=== PATIENT | male | born 1940 | race Caucasian/White ===

== ENCOUNTER → 2017-08-19 | Outpatient (CLI) | payer MEDICARE, OTHER ==
[~2017-08-19] MED LIST: AMLO5 PO; ASPI81CH PO; ATOR40TA PO; CLOP75 PO; DIAZ2 PO; DOCU100 PO; FISH1000; FLUT1DIS5 INH; ISOD40ER PO; ISOMON20; LORA10ER; NEBI10 PO; TELM20 PO; WARF2 PO; [UNRECOGNIZED DRUG - CODE]; [UNRECOGNIZED DRUG - REMARK]
[2017-08-19 13:04] LABS: Stool Occult Bld Immuno 1 Negative (NEGATIVE)
== END | disposition home or self-care (01) ==
LOC: LAB SHORT 09:00 → LAB 09:00
DX: D64.9 Anemia, unspecified (principal)
CPT/HCPCS: G0328

== ENCOUNTER 2017-08-20 14:11 | Observation (INO) | payer MEDICARE, OTHER ==
[~2017-08-20] VITALS: Ht 182.9 cm; Wt 84.5 kg
[~2017-08-20 14:11] MED LIST changes: -DOCU100 PO; -ISOD40ER PO; -ISOMON20
[2017-08-20] MEDS ORDERED: ISOMON20 (14:43)
[2017-08-20 15:09] LABS: BASOPHILS ABSOLUTE AUTO 0.02 K/mm3 (0.00-0.23); BASOPHILS PERCENT AUTO 0 % (0-2); EOSINOPHILS ABSOLUTE AUTO 0.22 K/mm3 (0.00-0.68); EOSINOPHILS PERCENT AUTO 5 % (0-6); Hematocrit 24.5 % (37.0-53.0); Hemoglobin 7.1 g/dL (13.5-17.5); IMMATURE GRAN ABSOLUTE AUTO 0.01 K/mm3 (0.00-0.10); IMMATURE GRAN PERCENT AUTO 0 % (0-1); LYMPHOCYTES ABSOLUTE AUTO 1.46 K/mm3 (0.84-5.20); LYMPHOCYTES PERCENT AUTO 30 % (21-46); MONOCYTES ABSOLUTE AUTO 0.64 K/mm3 (0.16-1.47); MONOCYTES PERCENT AUTO 13 % (4-13); Mean Corpuscular HGB 22.1 pg (26.0-34.0); Mean Corpuscular Volume 76 fL (80-100); NEUTROPHILS ABSOLUTE AUTO 2.47 K/mm3 (1.96-9.15); NEUTROPHILS PERCENT AUTO 51 % (41-73); Platelet Count 233 K/mm3 (150-400); RDW Coefficient Variation 17.3 % (11.7-14.2); RDW Standard Deviation 48.1 fL (35.1-46.3); Red Blood Cell Count 3.21 M/mm3 (4.30-5.90); White Blood Cell Count 4.82 K/mm3 (4.00-11.30)
[2017-08-20 15:29] LABS: Alanine Aminotransfer (ALT/SGP 42 U/L (12-78); Albumin, Blood 3.3 g/dL (3.4-5.0); Albumin/Globulin Ratio 0.9 (0.8-1.8); Alk Phos 62 U/L (50-136); Anion Gap 7 mmol/L (6-16); Aspartate Aminotrans (AST/SGOT 40 U/L (12-37); Bilirubin, Total 0.2 mg/dL (0.1-1.0); Blood Urea Nitrogen 18 mg/dL (8-24); Bun/Creatinine Ratio 15.4 (12.0-20.0); CO2, Blood 26 mmol/L (21-32); Calcium, Blood 8.2 mg/dL (8.5-10.1); Chloride, Blood 109 mmol/L (98-108); Creatinine, Blood 1.17 mg/dL (0.60-1.20); Globulin, Blood 3.7 g/dL (2.2-4.0); Glomerular Filtration Rate >60 (60-); Glucose, Blood 91 mg/dL (70-99); Potassium, Blood 4.7 mmol/L (3.5-5.5); Sodium, Blood 142 mmol/L (136-145); Troponin I <0.015 ng/mL (0.000-0.040)
[2017-08-20 15:33] LABS: International Normalized Ratio 1.98
[2017-08-20] MEDS ORDERED: DOCU100 PO ×2 (20:39)
[2017-08-20] MEDS ORDERED: ISOD40ER PO ×2 (20:41)
[2017-08-21 05:11] LABS: Hematocrit 26.2 % (37.0-53.0); Hemoglobin 7.7 g/dL (13.5-17.5); Mean Corpuscular HGB 22.5 pg (26.0-34.0); Mean Corpuscular HGB Conc 29.4 g/dL (31.5-36.5); Mean Corpuscular Volume 77 fL (80-100); Mean Platelet Volume 9.5 fL (9.1-12.4); Platelet Count 227 K/mm3 (150-400); RDW Standard Deviation 49.8 fL (35.1-46.3); Red Blood Cell Count 3.42 M/mm3 (4.30-5.90); White Blood Cell Count 4.28 K/mm3 (4.00-11.30)
[2017-08-21 05:29] LABS: International Normalized Ratio 1.94; Prothrombin Time Results 20.6 Sec (9.7-11.5)
[2017-08-21 09:08] LABS: Hematocrit 30.8 % (37.0-53.0); Hemoglobin 9.5 g/dL (13.5-17.5); Mean Corpuscular HGB 23.6 pg (26.0-34.0); Mean Corpuscular HGB Conc 30.8 g/dL (31.5-36.5); Mean Corpuscular Volume 77 fL (80-100); Platelet Count 222 K/mm3 (150-400); RDW Coefficient Variation 17.5 % (11.7-14.2); RDW Standard Deviation 49.1 fL (35.1-46.3); Red Blood Cell Count 4.02 M/mm3 (4.30-5.90); White Blood Cell Count 4.99 K/mm3 (4.00-11.30)
== END 2017-08-21 11:35 | disposition home or self-care (01) ==
LOC: ER 14:11 → MEDS 14:12 → ENPENDDIS 08-21 11:06 → MEDS 08-21 11:35
PROVIDERS: Emergency Medicine; Internal Medicine
DX: D64.9 Anemia, unspecified (principal); I25.10 Atherosclerotic heart disease of native coronary artery without angina pectoris; I10 Essential (primary) hypertension; R06.00 Dyspnea, unspecified; K22.70 Barrett's esophagus without dysplasia; J92.0 Pleural plaque with presence of asbestos; J44.9 Chronic obstructive pulmonary disease, unspecified; I73.9 Peripheral vascular disease, unspecified; Z87.891 Personal history of nicotine dependence; Z95.5 Presence of coronary angioplasty implant and graft; Z88.5 Allergy status to narcotic agent; Z88.8 Allergy status to other drugs, medicaments and biological substances; Z79.01 Long term (current) use of anticoagulants; Z79.899 Other long term (current) drug therapy; Z86.73 Personal history of transient ischemic attack (TIA), and cerebral infarction without residual deficits
CPT/HCPCS: 36415; 36430; 71045; 80053; 83880; 84484; 85025; 85027; 85610; 85730; 86850; 86900; 86901; 86923; 93005; 93010; 93306; 99285; G0378; J7030; P9016

== ENCOUNTER → 2018-10-11 | Outpatient (CLI) | payer MEDICARE, OTHER ==
[~2018-10-11] MED LIST changes: +DOCU100 PO; +ISOD40ER PO; +ISOMON20
== END | disposition home or self-care (01) ==
LOC: LAB SHORT 18:05 → LAB 18:05
DX: D51.8 Other vitamin B12 deficiency anemias (principal)
CPT/HCPCS: 82607; 82746

== ENCOUNTER → 2018-11-16 | Outpatient (CLI) | payer MEDICARE, OTHER ==
[2018-11-16 15:46] LABS: BASOPHILS ABSOLUTE AUTO 0.02 K/mm3 (0.00-0.23); BASOPHILS PERCENT AUTO 0 % (0-2); EOSINOPHILS ABSOLUTE AUTO 0.21 K/mm3 (0.00-0.68); EOSINOPHILS PERCENT AUTO 4 % (0-6); Hematocrit 39.9 % (37.0-53.0); Hemoglobin 12.7 g/dL (13.5-17.5); IMMATURE GRAN ABSOLUTE AUTO 0.02 K/mm3 (0.00-0.10); IMMATURE GRAN PERCENT AUTO 0 % (0-1); LYMPHOCYTES ABSOLUTE AUTO 1.01 K/mm3 (0.84-5.20); LYMPHOCYTES PERCENT AUTO 17 % (21-46); MONOCYTES ABSOLUTE AUTO 0.54 K/mm3 (0.16-1.47); MONOCYTES PERCENT AUTO 9 % (4-13); Mean Corpuscular HGB 31.8 pg (26.0-34.0); Mean Corpuscular HGB Conc 31.8 g/dL (31.5-36.5); Mean Corpuscular Volume 100 fL (80-100); Mean Platelet Volume 9.3 fL (9.1-12.4); NEUTROPHILS ABSOLUTE AUTO 3.99 K/mm3 (1.96-9.15); NEUTROPHILS PERCENT AUTO 69 % (41-73); Platelet Count 141 K/mm3 (150-400); RDW Coefficient Variation 15.1 % (11.7-14.2); RDW Standard Deviation 56.8 fL (35.1-46.3); Red Blood Cell Count 3.99 M/mm3 (4.30-5.90); White Blood Cell Count 5.79 K/mm3 (4.00-11.30)
== END | disposition home or self-care (01) ==
LOC: LAB 15:30 → LAB SHORT 15:30
PROVIDERS: Internal Medicine Hematology & Oncology
DX: D50.9 Iron deficiency anemia, unspecified (principal)
CPT/HCPCS: 82728; 83540; 83550; 85025

== ENCOUNTER 2019-10-12 12:07 | Inpatient (IN) | payer MEDICARE, OTHER ==
[~2019-10-12] VITALS: Ht 182.9 cm; Wt 75.4 kg
[~2019-10-12 12:07] MED LIST changes: -ASPI81CH PO; +Aspir 8181 MG PO; -FLUT1DIS5 INH; -ISOD40ER PO
[2019-10-12 12:47] LABS: BASOPHILS ABSOLUTE AUTO 0.04 K/mm3 (0.00-0.23); BASOPHILS PERCENT AUTO 1 % (0-2); EOSINOPHILS ABSOLUTE AUTO 0.27 K/mm3 (0.00-0.68); EOSINOPHILS PERCENT AUTO 4 % (0-6); Hematocrit 22.4 % (37.0-53.0); Hemoglobin 6.9 g/dL (13.5-17.5); IMMATURE GRAN ABSOLUTE AUTO 0.02 K/mm3 (0.00-0.10); IMMATURE GRAN PERCENT AUTO 0 % (0-1); LYMPHOCYTES ABSOLUTE AUTO 1.63 K/mm3 (0.84-5.20); LYMPHOCYTES PERCENT AUTO 22 % (21-46); MONOCYTES ABSOLUTE AUTO 0.48 K/mm3 (0.16-1.47); MONOCYTES PERCENT AUTO 6 % (4-13); Mean Corpuscular HGB 32.4 pg (26.0-34.0); Mean Corpuscular HGB Conc 30.8 g/dL (31.5-36.5); Mean Corpuscular Volume 105 fL (80-100); Mean Platelet Volume 9.2 fL (9.1-12.4); NEUTROPHILS ABSOLUTE AUTO 5.13 K/mm3 (1.96-9.15); NEUTROPHILS PERCENT AUTO 68 % (41-73); NRBC ABSOLUTE 0.02 K/mm3 (0.00-0.02); NRBC Auto 0.3 /100 WBC (0.0-0.2); Platelet Count 187 K/mm3 (150-400); RDW Coefficient Variation 15.2 % (11.7-14.2); Red Blood Cell Count 2.13 M/mm3 (4.30-5.90); White Blood Cell Count 7.57 K/mm3 (4.00-11.30)
[2019-10-12 13:10] LABS: Prothrombin Time Results 57.2 Sec (9.7-11.5)
[2019-10-12 13:15] LABS: Alanine Aminotransfer (ALT/SGP 51 U/L (12-78); Albumin, Blood 2.8 g/dL (3.4-5.0); Albumin/Globulin Ratio 0.9 (0.8-1.8); Alk Phos 52 U/L (50-136); Anion Gap 5 mmol/L (6-16); Aspartate Aminotrans (AST/SGOT 51 U/L (12-37); Bilirubin, Total 0.3 mg/dL (0.1-1.0); Blood Urea Nitrogen 41 mg/dL (8-24); Bun/Creatinine Ratio 33.3 (12.0-20.0); CO2, Blood 23 mmol/L (21-32); Chloride, Blood 110 mmol/L (98-108); Creatinine, Blood 1.23 mg/dL (0.60-1.20); Glomerular Filtration Rate >60 (60-); Glucose, Blood 137 mg/dL (70-99); Potassium, Blood 4.4 mmol/L (3.5-5.5); Sodium, Blood 138 mmol/L (136-145); Total Protein, Blood 5.8 g/dL (6.4-8.2)
[2019-10-12 13:16] LABS: Troponin I <0.015 ng/mL (0.000-0.040)
[2019-10-12] MEDS ORDERED: ALBU90OI INH (13:33)
[2019-10-12 14:55] LABS: International Normalized Ratio 5.91
[2019-10-12] MEDS ORDERED: TRELEGY ELLIPT1 EACH INH (15:01)
[2019-10-12] MEDS ORDERED: ISOSORBIDE MONO60 MG PO (15:27)
[2019-10-12] MEDS ORDERED: PANTOPRAZOLE SO40 M2 PO (15:28)
[2019-10-12] MEDS ORDERED: NITR.4SL SL (15:29)
[2019-10-12 16:32] LABS: Percent Saturation 56.9 % (20.0-50.0)
--- NOTE | 2019-10-12 19:00 | NUR ---
ASSUMED CARE PT ALERT AND ORIENTED. VS STABLE. HR NSR. 1 UNIT OF PRBC INFUSING UPON ADMIT AND STARTED IN THE ER, SEE PAPER CHARTING. ATTEMPTED TO PLACE SECOND IV TO INITIATE PROTONIX GTT AND PT REFUSED. SECOND NURSE ATTEMPTED TO START ANOTHER IV VIA ULTRASOUND AND PT REFUSED WELL. PT EDUCATED ON NEED FOR SECOND IV AND PROTONIX GTT. PT NOT LETTING THIS RN FINISH SPEAKING AND STATING THAT HE KNOWS HIS BODY AND WHAT HE NEEDS. REPORT HAS BEEN GIVEN TO STACKER AND SORTER OPERATOR RN.
--- NOTE | 2019-10-12 20:00 | NUR ---
ASSUMED CARE THIS RN TO ROOM TO OBTAIN VITALS, AND ASSESS BLOOD TRANSFUSION. PER REPORT FORM DAY SHIFT PT HAS BEEN UPSET WITH CARE AND REFUSING ANOTHER IV, AND PROTONIX GTT. PT REPORTS "THE DOCTOR ORDERED SOMETHING AND DIDN'T TELL ME ABOUT IT. I DONT TRUST ANY DOCTOR THAT WOULD DO THAT". ATTEMPTED EDUCATION ON REASON FOR PROTONIX GTT. PT INTERUPTING EDUCATION AND REFUSING TO ALLOW THIS RN TO EDUCATE. OLEG INSTRUCTIONAL SYSTEMS DESIGNER BROUGHT TO ROOM TO HELP RN EDUCATE PT. PT REMAINS UNWILLING AND AGGITATED AT ATTEMPTS. REPORTS "JUST RESPECT MY DECISION AND I SAY NO AGAIN. NO MEDICATION NO IV". PT DID REPORT WILL ALLOW THIS RN TO PERFORM BLOOD DRAW AFTER SECOND UNIT OF PRBC'S HAS INFUSED. PT REQUESTING DRAW FROM IV ONLY. PT EDUCATED THAT DRAW FROM IV WAS NOT RECOMENDED PRACTICE. PT UNWILLING TO LISTEN TO EDUCATION.
--- NOTE | 2019-10-12 21:30 | NUR ---
UPDATE PATIENT'S BLOOD TRANSFUSION COMPLETE. PATIENT DISCONNECT AND REFUSED TO HAVE HIS PROTONIX GTT STARTED AND REFUSED TO HAVE ANY LAB WORK DONE. PATIENT STATING, "I DON'T WANT ANY MORE POKES." PATIENT STATED, "IF THEY DON'T WANT ME EATING AND PUTTING THINGS IN MY STOMACH THEN I DON'T NEED TO BE PUTTING MEDS IN IT EITHER." PATIENT REFUSING MOST MEDICATIONS AND LAB DRAWS EVEN AFTER EDUCATION ATTEMPTED. PATIENT NOT RECEPTIVE TO EDUCATION AT THIS TIME. PATIETN REQUESTING TO NOT BE BOTHERED UNTIL THE MORNING STATING, "I JUST WANT TO SLEEP."
--- NOTE | 2019-10-12 23:21 | NUR ---
PT REFUSING ALL VITAL SIGNS, MEDS AND BLOOD WORK AT THIS TIME.
--- NOTE | 2019-10-12 23:31 | NUR ---
RN TO ROOM TO FIX TELE LEADS. PT STILL REFUSING VITALS. APPEARS STABLE.
--- NOTE | 2019-10-13 04:00 | NUR ---
PT HAS REFUSED VITAL SIGNS FOR NIGHT AND ALL LAB WORK. HAS CALL LIGHT
--- NOTE | 2019-10-13 05:46 | NUR ---
SHIFT SUMMARY PT SLEEPING IN ROOM COMFORTABLY AT THIS TIME. NO ACUTE CHANGES IN STATUS T/O NIGHT PT REFUSED MOST CARE T/O SHIFT. PT RECEIVED 2 UNTIS, REFUSED BLOOD DRAW TO ASSESS HGB LEVEL. REFUSED VITALS T/O NIGHT. PT REPORTS "I FEEL FINE. JUST LEAVE ME ALONE UNTIL THE DOCTOR GETS HERE AND I CAN TALK TO HIM". PT REQUESTED DOOR SHUT AND NO ONE TO ENTER UNTIL AM. THIS RN AND RN CLINICAL QUALITY DID OPEN DOOR AND OBSERVE PT SLEEPING T/O NIGHT W/O WAKING PT. PT DID CONSENT TO REMAINING ON TELE T/O NIGHT. CALL LIGHT IN REACH.
[2019-10-13 08:46] LABS: Hematocrit 25.9 % (37.0-53.0); Hemoglobin 8.4 g/dL (13.5-17.5)
[2019-10-13 08:59] LABS: International Normalized Ratio 2.65; Prothrombin Time Results 26.8 Sec (9.7-11.5)
[2019-10-13 09:03] LABS: Anion Gap 5 mmol/L (6-16); Blood Urea Nitrogen 40 mg/dL (8-24); Bun/Creatinine Ratio 33.1 (12.0-20.0); CO2, Blood 25 mmol/L (21-32); Chloride, Blood 110 mmol/L (98-108); Creatinine, Blood 1.21 mg/dL (0.60-1.20); Glomerular Filtration Rate >60 (60-); Glucose, Blood 103 mg/dL (70-99); Potassium, Blood 4.5 mmol/L (3.5-5.5); Sodium, Blood 140 mmol/L (136-145)
--- NOTE | 2019-10-13 14:00 | NUR ---
10/13/19 1400 Diego Kearns History, Chart, Medications and Allergies reviewed before start of procedure.MONITOR INTACT WITH CONTINUOUS PULSE OXIMETRY AND INTERMITTENT BP.3-LEAD EKG REVIEWED WITH PHYSICIAN PRIOR TO START OF PROCEDURE.O2 VIA N/C INTACT THROUGHOUT SEDATION/PROCEDURE. PATIENT DETERMINED TO BE ASA APPROPRIATE FOR PROPOFOL SEDATION PRIOR TO START OF PROCEDURE BY DR. MELLO.
--- NOTE | 2019-10-13 14:19 | NUR ---
CARE ASSUMED ASSESSMENT COMPLETED, PT A&OX4, IRRITABLE AT TIMES BUT COOPERATIVE WITH CARE. VSS, PT DENIES CP/SOB, REPORTS SOME INTERMITTENT ABD DISCOMFORT, DENIES ABD PAIN AT THIS TIME. BT+, ABD SOFT, NO GRIMACING ON PALPATION, MILD DISTENSION NOTED, PT DENIES NAUSEA, REPORTS LAST BM WAS 2 DAYS AGO AND WAS BLACK, PT TAKES IRON SUPPLEMENT AT HOME. PT TOLERATED PO MEDS WELL WITH A SIP OF WATER, WAS GIVEN TYLENOL FOR ELIZALDE. DR.S MELLO AND KATIE IN TO SEE PATIENT, NEW ORDERS RECEIVED, COVID TEST SENT TO LAB. IV INFILTRATED, DC'D. POWERGLIDE INSERTED BY QIAN CHARLES TO R UPPER ARM, CHG DRESSING CDI. 2U FFP ADMINISTERED PER ORDERS, PT TOLERATED WELL, VS REMAIN STABLE. NS INFUSING AT 100ML/HR, PT NAPPED AFTER FFP, THEN WENT FOR EGD AT 1330. PLAN TO RECHECK LABS AFTER RETURN TO UNIT.
[2019-10-13 15:19] LABS: Hematocrit 21.2 % (37.0-53.0); Hemoglobin 6.6 g/dL (13.5-17.5)
--- NOTE | 2019-10-13 15:37 | NUR ---
UPDATE PT RETURNED TO PCU 3 FROM EGD AT 1445, ALERT AND ORIENTED, VSS, DENIES PAIN OR C/O. REPORT RECEIVED FROM PROCEDURE NURSE AND DR. MELLO. PT GIVEN CLEAR LIQUIDS PER DR. MELLO, TOLERATING WELL. SPECIMEN SENT TO LAB, HGB RESULT CALLED TO DR. MELLO.
[2019-10-13 17:10] LABS: Hematocrit 19.9 % (37.0-53.0); Hemoglobin 6.3 g/dL (13.5-17.5)
--- NOTE | 2019-10-13 17:38 | NUR ---
UPDATE DR. MELLO NOTIFIED OF HGB REDRAW RESULT, NEW ORDER FOR 1U PRBC, WILL ADMINISTER WHEN AVAILABLE.
--- NOTE | 2019-10-13 18:47 | NUR ---
END OF SHIFT PT RESTING IN BED WITH NO C/O AT THIS TIME. HAS BEEN UP TO BR INDEPENDENTLY MULTIPLE TIMES THIS SHIFT, GAIT STEADY. NO BOWEL MOVEMENT, NO EMESIS. PT REPORTS INCREASED SOB WITH EXERTION AND SOME LEFT SIDED CHEST PAIN, BOTH SYMPTOMS RESOLVE QUICKLY WITH REST, HX COPD. PT HAS BEEN NSR THIS SHIFT, HR 70'S, VSS DESPITE LOW HGB. PT HAS DENIED ABD DISCOMFORT THIS EVENING, NO N/V THIS SHIFT. PLEASANT AND COOPERATIVE AT THIS TIME, 1UNIT PRBC'S PENDING ADMINISTRATION. REPORT TO ONCOMING SHIFT.
[2019-10-13 19:02] LABS: International Normalized Ratio 1.76
[2019-10-13 19:10] LABS: Prothrombin Time Results 18.2 Sec (9.7-11.5)
[2019-10-13 23:08] LABS: Hematocrit 22.3 % (37.0-53.0); Hemoglobin 7.2 g/dL (13.5-17.5)
[2019-10-14 03:11] LABS: Hematocrit 23.6 % (37.0-53.0); Hemoglobin 7.4 g/dL (13.5-17.5); Mean Corpuscular HGB 30.7 pg (26.0-34.0); Mean Corpuscular HGB Conc 31.4 g/dL (31.5-36.5); Mean Platelet Volume 8.9 fL (9.1-12.4); NRBC ABSOLUTE 0.03 K/mm3 (0.00-0.02); NRBC Auto 0.6 /100 WBC (0.0-0.2); Platelet Count 112 K/mm3 (150-400); RDW Coefficient Variation 18.4 % (11.7-14.2); RDW Standard Deviation 62.9 fL (35.1-46.3); Red Blood Cell Count 2.41 M/mm3 (4.30-5.90); White Blood Cell Count 5.26 K/mm3 (4.00-11.30)
[2019-10-14 03:14] LABS: Mean Corpuscular Volume 98 fL (80-100)
[2019-10-14 03:26] LABS: International Normalized Ratio 1.63
[2019-10-14 03:29] LABS: Albumin, Blood 2.6 g/dL (3.4-5.0); Anion Gap 3 mmol/L (6-16); Blood Urea Nitrogen 26 mg/dL (8-24); Bun/Creatinine Ratio 23.4 (12.0-20.0); CO2, Blood 27 mmol/L (21-32); Calcium, Blood 7.6 mg/dL (8.5-10.1); Chloride, Blood 112 mmol/L (98-108); Creatinine, Blood 1.11 mg/dL (0.60-1.20); Glomerular Filtration Rate >60 (60-); Glucose, Blood 91 mg/dL (70-99); Phosphorus, Blood 3.2 mg/dL (2.5-4.9); Potassium, Blood 4.4 mmol/L (3.5-5.5); Sodium, Blood 142 mmol/L (136-145)
--- NOTE | 2019-10-14 05:12 | NUR ---
SHIFT SUMMARY PT SLEEPING IN ROOM COMFORTABLY AT THIS TIME. NO ACUTE CHANGES IN STATUS T/O NIGHT. PT SLEPT WELL. REPORTED SOME CP W/ EXERTION, RESOLVED W/ REST. 1 UNIT PRBC'S INFUSED FOR HGB 6.3. HGB IMPROVED TO 7.2 THEN 7.4. HOSPITALIST INFORMED NO NEW ORDERS. PT DENIED OTHER NEEDS. CALL LIGHT IN REACH.
--- NOTE | 2019-10-14 09:20 | NUR ---
UPDATE PT ALERT AND ORIENTED. VS STABLE. DR. MELLO IN TO SEE PT THIS AM WITH PLANS FOR GI BLOOD LOSS STUDY TODAY. IF SCAN IN CLEAR, PT ABLE TO DC HOME PER GI. ORDERS TO TRANSFUSE 1U PRBC. REPORT GIVEN TO MELVIN LAUGHLIN TO ASSUME CARE.
--- NOTE | 2019-10-14 09:56 | NUR ---
ASSUME CARE REPORT RECIEVED FROM MARYELLEN LAUGHLIN. PATIENT IS OUT OF UNIT AT [facility].
[2019-10-14 13:06] LABS: Stool Occult Bld Immuno 1 Positive (NEGATIVE)
[2019-10-14 14:56] LABS: Hemoglobin 8.6 g/dL (13.5-17.5)
--- NOTE | 2019-10-14 17:10 | NUR ---
PCU DISCHARGE SUMMARY PATIENT EDUCATED TO DISCHARGE INSTRUCTIONS - FOLLOW UP APPTS AND CLOSE MONITORING OF BLOOD PRESSURE, HR AND INR - PATIENT VERBALIZED UNDERSTANDING. PATIENT DENIED ANY COMPLAINTS OR QUESTIONS. LEFT UNIT HOME WITH IN NO ACUTE DISTRESS - BELONGINGS SENT WITH PATIENT.
== END 2019-10-14 16:50 | disposition home or self-care (01) | DRG 378 ==
LOC: ER 12:07 → PCU 15:56
PROVIDERS: Emergency Medicine; Internal Medicine Gastroenterology; ADMIT Internal Medicine
PROC: 30233N1 Transfusion of Nonautologous Red Blood Cells into Peripheral Vein, Percutaneous Approach (ICD-10-PCS; principal; 2019-10-12)
PROC: 30233K1 Transfusion of Nonautologous Frozen Plasma into Peripheral Vein, Percutaneous Approach (ICD-10-PCS; 2019-10-12)
PROC: 0D598ZZ Destruction of Duodenum, Via Natural or Artificial Opening Endoscopic (ICD-10-PCS; 2019-10-13 14:00)
DX: K55.21 Angiodysplasia of colon with hemorrhage (principal); D62 Acute posthemorrhagic anemia; I25.10 Atherosclerotic heart disease of native coronary artery without angina pectoris; I25.2 Old myocardial infarction; D50.9 Iron deficiency anemia, unspecified; I48.91 Unspecified atrial fibrillation; E78.5 Hyperlipidemia, unspecified; J44.9 Chronic obstructive pulmonary disease, unspecified; K22.70 Barrett's esophagus without dysplasia; Z85.46 Personal history of malignant neoplasm of prostate; I73.9 Peripheral vascular disease, unspecified; Z86.73 Personal history of transient ischemic attack (TIA), and cerebral infarction without residual deficits; Z90.79 Acquired absence of other genital organ(s); Z95.5 Presence of coronary angioplasty implant and graft; Z87.891 Personal history of nicotine dependence; E87.5 Hyperkalemia; M10.9 Gout, unspecified; B19.20 Unspecified viral hepatitis C without hepatic coma; I48.0 Paroxysmal atrial fibrillation; Z79.01 Long term (current) use of anticoagulants
CPT/HCPCS: 36415; 36430; 70450; 71045; 74177; 78278; 80048; 80053; 80069; 82274; 82728; 83540; 83550; 84484; 85014; 85018; 85025; 85027; 85610; 86850; 86900; 86901; 86923; 93005; 93010; 94760; 96374; 96375; 99285-25; A9270; A9270-GY; A9560; C1751; C9113; J2405; J2704; J7030; P9016; P9059; Q9967; U0002

== ENCOUNTER → 2019-10-18 | Outpatient (CLI) | payer MEDICARE, OTHER ==
[~2019-10-18] MED LIST changes: +ALBU90OI INH; +ISOSORBIDE MONO60 MG PO; +NITR.4SL SL; +PANTOPRAZOLE SO40 M2 PO; +TRELEGY ELLIPT1 EACH INH
[2019-10-18 19:55] LABS: BASOPHILS ABSOLUTE AUTO 0.02 K/mm3 (0.00-0.23); BASOPHILS PERCENT AUTO 0 % (0-2); EOSINOPHILS ABSOLUTE AUTO 0.25 K/mm3 (0.00-0.68); EOSINOPHILS PERCENT AUTO 5 % (0-6); Hematocrit 32.6 % (37.0-53.0); Hemoglobin 10.1 g/dL (13.5-17.5); IMMATURE GRAN ABSOLUTE AUTO 0.02 K/mm3 (0.00-0.10); IMMATURE GRAN PERCENT AUTO 0 % (0-1); LYMPHOCYTES ABSOLUTE AUTO 1.01 K/mm3 (0.84-5.20); LYMPHOCYTES PERCENT AUTO 18 % (21-46); MONOCYTES ABSOLUTE AUTO 0.44 K/mm3 (0.16-1.47); MONOCYTES PERCENT AUTO 8 % (4-13); Mean Corpuscular HGB 31.9 pg (26.0-34.0); Mean Platelet Volume 9.5 fL (9.1-12.4); NEUTROPHILS ABSOLUTE AUTO 3.85 K/mm3 (1.96-9.15); NEUTROPHILS PERCENT AUTO 69 % (41-73); Platelet Count 188 K/mm3 (150-400); RDW Coefficient Variation 18.5 % (11.7-14.2); RDW Standard Deviation 66.2 fL (35.1-46.3); Red Blood Cell Count 3.17 M/mm3 (4.30-5.90); White Blood Cell Count 5.59 K/mm3 (4.00-11.30)
[2019-10-18 19:59] LABS: Mean Corpuscular Volume 103 fL (80-100)
[2019-10-18 20:25] LABS: Percent Saturation 12.1 % (20.0-50.0)
== END ==
LOC: LAB SHORT 14:45 → LAB 14:45
PROVIDERS: Internal Medicine Hematology & Oncology
DX: D50.9 Iron deficiency anemia, unspecified (principal)
CPT/HCPCS: 82728; 83540; 83550; 85025

== ENCOUNTER → 2019-12-24 | Outpatient (CLI) | payer MEDICARE, OTHER | LOC: LAB SHORT 11:27 → PLD 11:27 → LAB SHORT 12-25 08:00 | DX: C44.519 Basal cell carcinoma of skin of other part of trunk (principal) | CPT/HCPCS: 88305 ==

== ENCOUNTER → 2020-03-12 | Outpatient (CLI) | payer MEDICARE, OTHER ==
[2020-03-12 19:37] LABS: Percent Saturation 51.7 % (20.0-50.0)
== END | disposition home or self-care (01) ==
LOC: LAB 17:29 → LAB SHORT 17:29
PROVIDERS: Internal Medicine Hematology & Oncology
DX: E61.1 Iron deficiency (principal)
CPT/HCPCS: 82728; 83540; 83550

== ENCOUNTER → 2020-06-16 | Outpatient (CLI) | payer MEDICARE, OTHER ==
[2020-06-16 18:20] LABS: Prothrombin Time Results 47.6 Sec (9.7-11.5)
[2020-06-16 19:28] LABS: International Normalized Ratio 4.87
== END | disposition home or self-care (01) ==
LOC: LAB SRC 15:12
PROVIDERS: Physician Assistant
DX: Z79.01 Long term (current) use of anticoagulants (principal); Z51.81 Encounter for therapeutic drug level monitoring
CPT/HCPCS: 36415; 85610

== ENCOUNTER → 2020-11-05 | Outpatient (CLI) | payer MEDICARE, OTHER | END | disposition home or self-care (01) | LOC: LAB 08:06 → LAB SHORT 08:06 | DX: C44.519 Basal cell carcinoma of skin of other part of trunk (principal); C44.41 Basal cell carcinoma of skin of scalp and neck | CPT/HCPCS: 88305 ==

== ENCOUNTER → 2021-10-09 | Outpatient (CLI) | payer MEDICARE, OTHER ==
[2021-10-09 14:38] LABS: Percent Saturation 48.4 % (20.0-50.0)
== END | disposition home or self-care (01) ==
LOC: LAB 13:02 → LAB SHORT 13:02
PROVIDERS: Internal Medicine Hematology & Oncology
DX: E53.8 Deficiency of other specified B group vitamins (principal); D50.0 Iron deficiency anemia secondary to blood loss (chronic)
CPT/HCPCS: 82607; 82728; 82746; 83540; 83550

== ENCOUNTER → 2022-02-02 | Outpatient (CLI) | payer MEDICARE, OTHER | END | disposition home or self-care (01) | LOC: LAB SHORT 08:59 → PLD 08:59 | DX: C44.41 Basal cell carcinoma of skin of scalp and neck (principal) | CPT/HCPCS: 88305 ==

== ENCOUNTER → 2022-02-17 | Outpatient (CLI) | payer MEDICARE, OTHER | LOC: PLD 09:03 → LAB SHORT 09:03 | DX: C44.41 Basal cell carcinoma of skin of scalp and neck (principal) | CPT/HCPCS: 88305 ==

== ENCOUNTER → 2022-03-09 | Outpatient (CLI) | payer MEDICARE, OTHER ==
[2022-03-09 20:07] LABS: Alanine Aminotransfer (ALT/SGP 93 U/L (12-78); Albumin, Blood 3.6 g/dL (3.4-5.0); Albumin/Globulin Ratio 1.3 (0.8-1.8); Alk Phos 64 U/L (50-136); Anion Gap 6 mmol/L (6-16); Aspartate Aminotrans (AST/SGOT 55 U/L (12-37); Bilirubin, Total 0.5 mg/dL (0.1-1.0); Blood Urea Nitrogen 20 mg/dL (8-24); Bun/Creatinine Ratio 15.2 (12.0-20.0); CO2, Blood 23 mmol/L (21-32); Calcium, Blood 8.8 mg/dL (8.5-10.1); Chloride, Blood 107 mmol/L (98-108); Creatinine, Blood 1.32 mg/dL (0.60-1.20); Ferritin, Serum 495 ng/mL (26-388); Globulin, Blood 2.8 g/dL (2.2-4.0); Glomerular Filtration Rate 55 (60-); Glucose, Blood 114 mg/dL (70-99); Iron Serum 114 ug/dL (65-175); Percent Saturation 48.1 % (20.0-50.0); Phosphorus, Blood 2.7 mg/dL (2.5-4.9); Potassium, Blood 3.9 mmol/L (3.5-5.5); Prostate Specific Antigen <0.010 ng/mL (0.000-4.000); Sodium, Blood 136 mmol/L (136-145); Total Iron Binding Capacity 237 ug/dL (250-450); Total Protein, Blood 6.4 g/dL (6.4-8.2)
== END | disposition home or self-care (01) ==
LOC: LAB 12:00 → LAB SHORT 12:00
PROVIDERS: Internal Medicine Hematology & Oncology
DX: Z12.5 Encounter for screening for malignant neoplasm of prostate (principal); D50.9 Iron deficiency anemia, unspecified
CPT/HCPCS: 80053; 82728; 83540; 83550; 84100; G0103

== ENCOUNTER → 2022-03-10 | Outpatient (CLI) | payer MEDICARE, OTHER ==
[2022-03-14 17:07] LABS: HBSAG SCREEN Negative (Negative); HCV AB >11.0 (0.0-0.9); HCV LOG10 5.744 (.); HEP A AB, IGM Negative (Negative); HEP B CORE AB, IGM Negative (Negative); HEPATITIS C QUANTITATION 554000 IU/mL (.)
== END | disposition home or self-care (01) ==
LOC: LAB 11:28 → LAB SHORT 11:28
PROVIDERS: Internal Medicine Hematology & Oncology
DX: B19.20 Unspecified viral hepatitis C without hepatic coma (principal); K76.9 Liver disease, unspecified; R79.89 Other specified abnormal findings of blood chemistry
CPT/HCPCS: 80074

== ENCOUNTER → 2022-07-13 | Outpatient (CLI) | payer MEDICARE, OTHER ==
[2022-07-13 22:38] LABS: Albumin, Blood 3.8 g/dL (3.4-5.0); Albumin/Globulin Ratio 1.2 (0.8-1.8); Bilirubin, Total 0.6 mg/dL (0.1-1.0); Bun/Creatinine Ratio 13.6 (12.0-20.0); Creatinine, Blood 1.32 mg/dL (0.60-1.20); Globulin, Blood 3.1 g/dL (2.2-4.0); Phosphorus, Blood 2.9 mg/dL (2.5-4.9); Potassium, Blood 3.9 mmol/L (3.5-5.5); Thyroid Stimulating Hormone 3.28 uIU/mL (0.360-4.800); Thyroxine (T4) 13.4 ug/dL (4.5-12.1); Total Protein, Blood 6.9 g/dL (6.4-8.2)
== END | disposition home or self-care (01) ==
LOC: LAB 15:23 → LAB SHORT 15:23
PROVIDERS: Internal Medicine Hematology & Oncology
DX: D50.9 Iron deficiency anemia, unspecified (principal); E78.5 Hyperlipidemia, unspecified
CPT/HCPCS: 80053; 84100; 84436; 84443

== ENCOUNTER → 2022-09-23 | Outpatient (CLI) | payer MEDICARE, OTHER ==
[2022-09-23 18:34] LABS: Thyroid Stimulating Hormone 2.53 uIU/mL (0.360-4.800); Thyroxine (T4) 10.8 ug/dL (4.5-12.1)
== END | disposition home or self-care (01) ==
LOC: LAB SHORT 11:56 → LAB 11:56
PROVIDERS: Internal Medicine Hematology & Oncology
DX: E03.9 Hypothyroidism, unspecified (principal)
CPT/HCPCS: 84436; 84443

== ENCOUNTER → 2023-02-15 | Outpatient (CLI) | payer MEDICARE, OTHER | LOC: LAB SHORT 14:56 → LAB 14:56 | DX: D48.5 Neoplasm of uncertain behavior of skin (principal) | CPT/HCPCS: 88305 ==

== ENCOUNTER → 2023-11-15 | Outpatient (CLI) | payer MEDICARE, OTHER ==
[~2023-11-15] MED LIST changes: +ALLOPURINOL100 M1 PO; +ATOR20 PO; -ATOR40TA PO; +JANTOVEN2 MG PO
[2023-11-16 18:29] LABS: Albumin, Blood 3.3 g/dL (3.4-5.0); Albumin/Globulin Ratio 1.1 (0.8-1.8); Bilirubin, Direct 0.2 mg/dL (0.0-0.3); Bilirubin, Indirect 0.2 mg/dL (0.1-0.7); Bilirubin, Total 0.4 mg/dL (0.1-1.0); Bun/Creatinine Ratio 18.1 (12.0-20.0); Calcium, Blood 8.9 mg/dL (8.5-10.1); Creatinine, Blood 1.27 mg/dL (0.60-1.20); Potassium, Blood 4.5 mmol/L (3.5-5.5); Total Protein, Blood 6.3 g/dL (6.4-8.2)
== END ==
LOC: LAB 15:00 → LAB SHORT 15:00
PROVIDERS: Internal Medicine Hematology & Oncology
DX: R94.5 Abnormal results of liver function studies (principal)
CPT/HCPCS: 80053; 82248

== ENCOUNTER 2024-06-01 17:22 | Emergency (ER) | payer MEDICARE, OTHER ==
[~2024-06-01] VITALS: Ht 182.9 cm; Wt 79.4 kg
[2024-06-01 17:31] VITALS: BP 166/93
[2024-06-01 18:06] LABS: CORONAVIRUS COVID-19 AG Negative (NEGATIVE); INFLUENZA A AG Positive (NEGATIVE); INFLUENZA B AG Negative (NEGATIVE)
[2024-06-01 19:21] LABS: BASOPHILS ABSOLUTE AUTO 0.03 K/mm3 (0.00-0.23); BASOPHILS PERCENT AUTO 1 % (0-2); EOSINOPHILS ABSOLUTE AUTO 0.01 K/mm3 (0.00-0.68); EOSINOPHILS PERCENT AUTO 0 % (0-6); Hematocrit 41.1 % (37.0-53.0); Hemoglobin 14.1 g/dL (13.5-17.5); IMMATURE GRAN ABSOLUTE AUTO 0.04 K/mm3 (0.00-0.10); IMMATURE GRAN PERCENT AUTO 1 % (0-1); LYMPHOCYTES ABSOLUTE AUTO 0.42 K/mm3 (0.84-5.20); LYMPHOCYTES PERCENT AUTO 7 % (21-46); MONOCYTES ABSOLUTE AUTO 0.58 K/mm3 (0.16-1.47); MONOCYTES PERCENT AUTO 9 % (4-13); Mean Corpuscular HGB 31.9 pg (26.0-34.0); Mean Corpuscular HGB Conc 34.3 g/dL (31.5-36.5); Mean Corpuscular Volume 93 fL (80-100); Mean Platelet Volume 9.2 fL (9.1-12.4); NEUTROPHILS ABSOLUTE AUTO 5.16 K/mm3 (1.96-9.15); NEUTROPHILS PERCENT AUTO 83 % (41-73); Platelet Count 107 K/mm3 (150-400); RDW Coefficient Variation 13.9 % (11.7-14.2); RDW Standard Deviation 47.5 fL (35.1-46.3); Red Blood Cell Count 4.42 M/mm3 (4.30-5.90); White Blood Cell Count 6.24 K/mm3 (4.00-11.30)
[2024-06-01 19:39] LABS: Albumin, Blood 3.4 g/dL (3.4-5.0); Albumin/Globulin Ratio 0.9 (0.8-1.8); Bilirubin, Total 0.7 mg/dL (0.1-1.0); Bun/Creatinine Ratio 17.3 (12.0-20.0); Calcium, Blood 8.5 mg/dL (8.5-10.1); Creatinine, Blood 1.27 mg/dL (0.60-1.20); Globulin, Blood 3.8 g/dL (2.2-4.0); Potassium, Blood 4.2 mmol/L (3.5-5.5); Total Protein, Blood 7.2 g/dL (6.4-8.2)
[2024-06-01] MEDS ORDERED: Ondansetron HCl 2 MG / ML 2ML Vial IV ONE (20:15)
[2024-06-01] MEDS ORDERED: NS 1,000 ML IV SCH (20:25)
[2024-06-01] MEDS ORDERED: ONDA4ODT MM (21:03)
[2024-06-01] MEDS ORDERED: OSEL75CA PO (21:03)
== END 2024-06-01 21:29 | disposition home or self-care (01) ==
LOC: ER 17:22
PROVIDERS: Student in an Organized Health Care Education/Training Program
DX: J10.1 Influenza due to other identified influenza virus with other respiratory manifestations (principal); E86.0 Dehydration; I10 Essential (primary) hypertension; I25.2 Old myocardial infarction; J44.9 Chronic obstructive pulmonary disease, unspecified; Z87.891 Personal history of nicotine dependence; Z86.73 Personal history of transient ischemic attack (TIA), and cerebral infarction without residual deficits; Z79.01 Long term (current) use of anticoagulants; Z79.82 Long term (current) use of aspirin; Z79.51 Long term (current) use of inhaled steroids; Z79.899 Other long term (current) drug therapy
CPT/HCPCS: 71046; 80053; 85025; 87428-QW; 93005; 93010; 96361; 96374; 99284-25; J2405; J7030

== ENCOUNTER 2024-11-07 10:53 | Emergency (ER) | payer MEDICARE, OTHER ==
[~2024-11-07] VITALS: Ht 177.8 cm; Wt 72.6 kg
[~2024-11-07 10:53] MED LIST changes: +ONDA4ODT MM; +OSEL75CA PO
[2024-11-07] MEDS ORDERED: NEURONTIN300 MG PO (12:16)
[2024-11-07] MEDS ORDERED: TRELEGY ELLIPT1 EAC1 (12:17)
[2024-11-07] MEDS ORDERED: NITROGLYCERIN0.4 M3 SL (12:18)
[2024-11-07 12:19] LABS: BASOPHILS ABSOLUTE AUTO 0.03 K/mm3 (0.00-0.23); BASOPHILS PERCENT AUTO 0 % (0-2); EOSINOPHILS ABSOLUTE AUTO 0.03 K/mm3 (0.00-0.68); EOSINOPHILS PERCENT AUTO 0 % (0-6); Hematocrit 41.6 % (37.0-53.0); Hemoglobin 13.6 g/dL (13.5-17.5); IMMATURE GRAN ABSOLUTE AUTO 0.10 K/mm3 (0.00-0.10); IMMATURE GRAN PERCENT AUTO 1 % (0-1); LYMPHOCYTES ABSOLUTE AUTO 1.04 K/mm3 (0.84-5.20); LYMPHOCYTES PERCENT AUTO 8 % (21-46); MONOCYTES ABSOLUTE AUTO 1.23 K/mm3 (0.16-1.47); MONOCYTES PERCENT AUTO 9 % (4-13); Mean Corpuscular HGB Conc 32.7 g/dL (31.5-36.5); Mean Corpuscular Volume 95 fL (80-100); NEUTROPHILS ABSOLUTE AUTO 11.00 K/mm3 (1.96-9.15); NEUTROPHILS PERCENT AUTO 82 % (41-73); NRBC ABSOLUTE 0.00 K/mm3 (0.00-0.02); NRBC Auto 0.0 /100 WBC (0.0-0.2); Platelet Count 127 K/mm3 (150-400); RDW Coefficient Variation 14.2 % (11.7-14.2); RDW Standard Deviation 49.6 fL (35.1-46.3)
[2024-11-07 12:33] LABS: Prothrombin Time Results 16.8 Sec (9.7-11.5)
[2024-11-07 12:55] LABS: Anion Gap 6.0 mmol/L (3-11); Blood Urea Nitrogen 24.0 mg/dL (8-24); CO2, Blood 29.0 mmol/L (21-32); Calcium, Blood 8.4 mg/dL (8.5-10.1); Chloride, Blood 101.0 mmol/L (98-108); Creatinine, Blood 1.3 mg/dL (0.60-1.20); Glucose, Blood 115.0 mg/dL (70-99); Potassium, Blood 4.2 mmol/L (3.5-5.5); Sodium, Blood 132.0 mmol/L (136-145)
[2024-11-07 16:00] VITALS: BP 132/84
== END 2024-11-07 16:47 | disposition home or self-care (01) ==
LOC: ER 10:53
PROVIDERS: Student in an Organized Health Care Education/Training Program
DX: R07.9 Chest pain, unspecified (principal); I48.91 Unspecified atrial fibrillation; R06.02 Shortness of breath; I69.954 Hemiplegia and hemiparesis following unspecified cerebrovascular disease affecting left non-dominant side; I10 Essential (primary) hypertension; I25.2 Old myocardial infarction; I25.10 Atherosclerotic heart disease of native coronary artery without angina pectoris; J44.9 Chronic obstructive pulmonary disease, unspecified; Z79.82 Long term (current) use of aspirin; Z79.899 Other long term (current) drug therapy; Z79.01 Long term (current) use of anticoagulants; Z87.891 Personal history of nicotine dependence
CPT/HCPCS: 71046; 71260; 80048; 84484; 85025; 85379; 85610; 85651; 86140; 93005; 93010; 99285-25; Q9967

== ENCOUNTER 2024-12-24 20:55 | Inpatient (IN) | payer MEDICARE, OTHER ==
[~2024-12-24] VITALS: Ht 182.9 cm; Wt 78.7 kg
[~2024-12-24 20:55] MED LIST changes: +NEURONTIN300 MG PO; +NITROGLYCERIN0.4 M3 SL; +TRELEGY ELLIPT1 EAC1 INH
[2024-12-24] MEDS ORDERED: Ondansetron HCl 2 MG / ML 2ML Vial IV ONE (21:05)
[2024-12-24 21:27] LABS: BASOPHILS ABSOLUTE AUTO 0.04 K/mm3 (0.00-0.23); BASOPHILS PERCENT AUTO 1 % (0-2); EOSINOPHILS ABSOLUTE AUTO 0.34 K/mm3 (0.00-0.68); EOSINOPHILS PERCENT AUTO 6 % (0-6); Hematocrit 41.8 % (37.0-53.0); Hemoglobin 13.5 g/dL (13.5-17.5); IMMATURE GRAN ABSOLUTE AUTO 0.05 K/mm3 (0.00-0.10); IMMATURE GRAN PERCENT AUTO 1 % (0-1); LYMPHOCYTES ABSOLUTE AUTO 1.50 K/mm3 (0.84-5.20); LYMPHOCYTES PERCENT AUTO 24 % (21-46); MONOCYTES ABSOLUTE AUTO 0.63 K/mm3 (0.16-1.47); MONOCYTES PERCENT AUTO 10 % (4-13); Mean Corpuscular HGB Conc 32.3 g/dL (31.5-36.5); Mean Corpuscular Volume 94 fL (80-100); NEUTROPHILS ABSOLUTE AUTO 3.66 K/mm3 (1.96-9.15); NEUTROPHILS PERCENT AUTO 59 % (41-73); NRBC ABSOLUTE 0.00 K/mm3 (0.00-0.02); NRBC Auto 0.0 /100 WBC (0.0-0.2); Platelet Count 131 K/mm3 (150-400); RDW Coefficient Variation 14.8 % (11.7-14.2); RDW Standard Deviation 51.8 fL (35.1-46.3)
[2024-12-24 21:44] LABS: Alanine Aminotransfer (ALT/SGP 68.0 U/L (12-78); Albumin, Blood 3.4 g/dL (3.4-5.0); Albumin/Globulin Ratio 0.8 (0.8-1.8); Anion Gap 9.0 mmol/L (3-11); Aspartate Aminotrans (AST/SGOT 61.0 U/L (12-37); Bilirubin, Total 0.4 mg/dL (0.1-1.0); Blood Urea Nitrogen 21.0 mg/dL (8-24); CO2, Blood 28.0 mmol/L (21-32); Calcium, Blood 8.9 mg/dL (8.5-10.1); Chloride, Blood 103.0 mmol/L (98-108); Creatinine, Blood 1.37 mg/dL (0.60-1.20); Globulin, Blood 4.0 g/dL (2.2-4.0); Glucose, Blood 98.0 mg/dL (70-99); Potassium, Blood 4.6 mmol/L (3.5-5.5); Sodium, Blood 135.0 mmol/L (136-145); Total Protein, Blood 7.4 g/dL (6.4-8.2)
[2024-12-24 22:54] LABS: Source, Urine Clean Catch
[2024-12-24 23:10] LABS: Bilirubin, Urine Neg (Neg); Color, Urine Yellow (P-Yellow); Glucose Qualitative, Urine Neg (Neg); Ketones, Urine Neg (Neg); Leukocyte Esterase, Urine Neg (Neg); Protein, Urine 2+ (Neg); Specific Gravity, Urine 1.020 (1.003-1.022); Urobilinogen, Urine 1+ (Normal)
[2024-12-24 23:12] LABS: Red Blood Cells, Urine Not Seen /hpf (0-2); White Blood Cells, Urine Not Seen /hpf (0-5)
[2024-12-25] MEDS ORDERED: Ondansetron HCl 2 MG / ML 2ML Vial IV PRN (00:20)
[2024-12-25] MEDS ORDERED: Albuterol 2.5 MG/3 ML VIAL INH PRN (00:20)
[2024-12-25] MEDS ORDERED: NS 1,000 ML IV SCH (01:00)
[2024-12-25 01:05] LABS: Prothrombin Time Results 26.7 Sec (9.7-11.5)
[2024-12-25 03:29] VITALS: BP 152/108
--- NOTE | 2024-12-25 04:56 | NUR ---
PT A&O X4, VS WNL, TELE AFIB, UP WITH ASSIST, ON IVF, AWAITING FOR MRI, AND GAME PRODUCER SWALLOW EVAL. ON IVF, IS NPO. USES CALL SYSTEM APPROPRIATELY. WILL D/C HOME WITH . ADMITTED FROM ED WITH SEIZURES, AND AMS.
[2024-12-25 06:34] LABS: BASOPHILS ABSOLUTE AUTO 0.04 K/mm3 (0.00-0.23); BASOPHILS PERCENT AUTO 1 % (0-2); EOSINOPHILS ABSOLUTE AUTO 0.10 K/mm3 (0.00-0.68); EOSINOPHILS PERCENT AUTO 1 % (0-6); Hematocrit 40.1 % (37.0-53.0); Hemoglobin 13.0 g/dL (13.5-17.5); IMMATURE GRAN ABSOLUTE AUTO 0.08 K/mm3 (0.00-0.10); IMMATURE GRAN PERCENT AUTO 1 % (0-1); LYMPHOCYTES ABSOLUTE AUTO 1.30 K/mm3 (0.84-5.20); LYMPHOCYTES PERCENT AUTO 16 % (21-46); MONOCYTES ABSOLUTE AUTO 0.58 K/mm3 (0.16-1.47); MONOCYTES PERCENT AUTO 7 % (4-13); Mean Corpuscular HGB Conc 32.4 g/dL (31.5-36.5); Mean Corpuscular Volume 96 fL (80-100); NEUTROPHILS ABSOLUTE AUTO 6.02 K/mm3 (1.96-9.15); NEUTROPHILS PERCENT AUTO 74 % (41-73); NRBC ABSOLUTE 0.00 K/mm3 (0.00-0.02); NRBC Auto 0.0 /100 WBC (0.0-0.2); Platelet Count 114 K/mm3 (150-400); RDW Coefficient Variation 14.9 % (11.7-14.2); RDW Standard Deviation 53.1 fL (35.1-46.3)
[2024-12-25 06:47] LABS: Prothrombin Time Results 26.6 Sec (9.7-11.5)
[2024-12-25 06:58] LABS: Alanine Aminotransfer (ALT/SGP 63.0 U/L (12-78); Albumin, Blood 3.2 g/dL (3.4-5.0); Albumin/Globulin Ratio 0.8 (0.8-1.8); Anion Gap 9.0 mmol/L (3-11); Aspartate Aminotrans (AST/SGOT 60.0 U/L (12-37); Bilirubin, Total 0.5 mg/dL (0.1-1.0); Blood Urea Nitrogen 23.0 mg/dL (8-24); CO2, Blood 23.0 mmol/L (21-32); Calcium, Blood 8.7 mg/dL (8.5-10.1); Chloride, Blood 103.0 mmol/L (98-108); Creatinine, Blood 1.28 mg/dL (0.60-1.20); Globulin, Blood 3.8 g/dL (2.2-4.0); Glucose, Blood 116.0 mg/dL (70-99); Potassium, Blood 4.0 mmol/L (3.5-5.5); Sodium, Blood 131.0 mmol/L (136-145); Total Protein, Blood 7.0 g/dL (6.4-8.2)
[2024-12-25 07:40] VITALS: BP 150/87
[2024-12-25] MEDS ORDERED: Enoxaparin 40 MG/0.4 ML SYR SC SCH (09:00)
[2024-12-25] MEDS ORDERED: Pantoprazole Sodium 40 MG Injection IV SCH (09:00)
[2024-12-25 11:09] VITALS: BP 141/92
[2024-12-25] MEDS ORDERED: Formoterol/Mometasone MDI 5/200 mcg 13 GM INH SCH (12:10)
[2024-12-25] MEDS ORDERED: Ipratropium Bromide INH 0.02% 0.5 mg/2.5ML Vial INH SCH ×2 (12:10→23:25)
[2024-12-25 16:17] VITALS: BP 127/78
--- NOTE | 2024-12-25 19:26 | NUR ---
ASSUMED CARE PT VERY PLEASENT A/O X 4 CALL LIGHT WITHIN REACH. PAIN TO MID BACK 01/09 AND WAS MEDICATED PER JUN. HEATING PAD APPLIED WELL. NEW IV INSERTED TO RIGHT FOREARM. FAMILY AT BEDSIDE.
--- NOTE | 2024-12-25 19:27 | NUR ---
PT IS CONSISTENT TO MID BACK, NOTE THAT PT HAD CHRONIC PAIN IN THE AREA BUT SINCE ILLNESS IT HAS GOTTEN WORSE, WILL CONT TO REPOSITION AND MONITOR. PT TAKEN FOR MRI AND JULIO WELL. STATES PAIN HAS IMPROVED A LITTLE, BUT IS STILL THERE.
--- NOTE | 2024-12-25 19:30 | NUR ---
NO CHANGE IN CONDITION PT HAS BEEN SLEEPING SPOT CHECKS ON O2 SHOWED PT IN THE MID TO LOW 90S ON RA, WILL CONT TO MONITOR. DAUGHTER REMAINS AT BEDSIDE TO ASSIST. FAMILY TO BRING IN POLST, STATES PT IS DNR.
[2024-12-25 20:09] VITALS: BP 121/82
[2024-12-25] MEDS ORDERED: Docusate Sodium/Senna 1 Tab PO SCH (21:00)
[2024-12-26 05:18] VITALS: BP 134/89
[2024-12-26 05:49] LABS: Prothrombin Time Results 27.8 Sec (9.7-11.5)
[2024-12-26 07:41] VITALS: BP 142/79
--- NOTE | 2024-12-26 07:57 | NUR ---
SHIFT SUMMARY PT HAS BEEN IN PLEASANT MOOD THIS SHIFT. HE AGREED TO SUPPLEMENTAL O2 VIA NC. IN AM, MOI FROM RT TURNED DOWN ALERT SETTINGS TO 86% PER PT REQUEST. PT SUPPLEMENTAL O2 DC D. PT REQUESTED PROTEIN SNACK. THIS RN PROVIDED LEAN CUISINE TO PT. PT CONTENT WITH THIS OPTION. PT PLEASANT AND COOPERATIVE WITH THIS RN. PT WANTING TO GO HOME. PT NEEDS CASE MANAGEMENT INVOLVEMENT AND IN THIS RN S PROFESSIONAL JUDGEMENT WOULD BENEFIT GREATLY FROM HOME HEALTH EVAL.
[2024-12-26] MEDS ORDERED: DONEPEZIL HCL10 M1 PO (11:20)
[2024-12-26 15:53] VITALS: BP 146/93
--- NOTE | 2024-12-26 18:43 | NUR ---
SHIFT SUMMARY PT A&OX3-4 TODAY. RECENT DX OF DEMENTIA WITH INTERMITTENT CONFUSION. PT EVAL PENDING TO ASSESS FOR THE NEED FOR CHANGES TO MOBILITY DEVICES ON DISCHARGE. PT IS CURRENTLY RESTING IN BED, WITH BED IN LOWEST POSITION AND CALL LIGHT IN REACH. PT CONTINUES TO HAVE PAIN, PAIN IS BEING TREATED PER EMAR. PER PT PATIENT IS HIGH FALL RISK. BED TO CHAIR/BED TO COMMODE ONLY.
[2024-12-26] MEDS ORDERED: VITAMIN D5000 UNIT PO (19:05)
[2024-12-26] MEDS ORDERED: OCUVITE BLUE L1 EACH PO (19:06)
[2024-12-26] MEDS ORDERED: C COMPLEX1000 M1 PO (19:06)
[2024-12-26] MEDS ORDERED: ZYRTEC10 M2 PO (19:07)
[2024-12-26] MEDS ORDERED: MAGNESIUM GLU27.5 M1 PO (19:07)
[2024-12-26] MEDS ORDERED: DOCU100 PO (19:09)
[2024-12-26 20:09] VITALS: BP 127/82
[2024-12-27 04:18] VITALS: BP 163/96
[2024-12-27 06:32] LABS: Prothrombin Time Results 28.5 Sec (9.7-11.5)
[2024-12-27 07:44] VITALS: BP 141/85
--- NOTE | 2024-12-27 13:23 | NUR ---
PT BACK FRO PACU PT IS DROWSY AWAKENS EASILY A/OX4, VS WNL, CLEAN DRY DRESSING ON THE RIGHT FOOT, CALL LIGHT IN REACH
[2024-12-27 15:33] VITALS: BP 123/74
--- NOTE | 2024-12-27 15:47 | NUR ---
CASE CONFRENCE- DISCUSSED CASE WITH PHYSICAL THERAPY AND PROVIDER. PROVIDER RELAYED PLAN IS FOR PATIENT TO GO TO SNF, HE HAS NO CONCERNS AT THIS TIME THAT WOULD WARRENT A HOSPICE CONVERSATION. VISIT ATTEMPTED TO PT
--- NOTE | 2024-12-27 19:24 | NUR ---
NO ACUTE CHANGES THIS SHIFT. CURRENLTY AWAITING SNF PLACEMENT. 1 PERSON ASSIST TO BATHROOM, FORGETS LIMITATIONS. NEEDS ADDITIONAL BOWEL CARE
[2024-12-27 20:27] VITALS: BP 128/82
[2024-12-28 05:22] VITALS: BP 151/98
--- NOTE | 2024-12-28 06:07 | NUR ---
INDUSTRIAL ENG SUMMARY NO ACUTE CHANGES. PT C/O OF 8-01/09 PAIN IN BACK. MED PER MAR. PT IMPULSIVE. PT IS PLEASANT WITH CARE/STAFF BUT CAN BE NON COMPLIANT WITH ASPECTS OF CARE LIKE NOT WANTING TO SIT UP AT 90 DEGREES FOR INTAKE AND PT IS RESISTANT TO HAVING LABS DRAWN. CALL LIGHT ACCESSIBLE. BED ALARM IN PLACE. REGULAR INTERVAL ROUNDING DONE T/O SHIFT. CARE WILL CONTINUE UNTIL REPORT GIVEN TO ONCOMING NURSE.
[2024-12-28 07:24] VITALS: BP 159/92
--- NOTE | 2024-12-28 10:30 | NUR ---
DECLINED LAB NOTE: PATIENT DECLINED LAB DRAWN MULTIPLE TIMES THIS AM. NOTIFIED DR. ACEVES DURING AM ROUNDING, PER DR. ACEVES TO CANCELLED LAB NOW AND HE NEEDS TO HAVE A REPEAT LAB DONE OUTPT.
[2024-12-28] MEDS ORDERED: ALLO100 PO (11:39)
[2024-12-28] MEDS ORDERED: SENN187 PO (11:41)
[2024-12-28] MEDS ORDERED: IPRAT-ALBUT 0.5-3 ML INH (11:43)
[2024-12-28] MEDS ORDERED: LEVETIRACETAM750 M1 PO (11:44)
--- NOTE | 2024-12-28 13:57 | NUR ---
REPORT TO [facility] NOTE: REPORTS GIVEN TO QIAN CONN VIA TELEPHONE AT [facility], REGARDING PATIENT CONDITION, PLAN OF CARE AND EXPECTED TIME FOR PICK-UP AT 1630. FABIEN VERBALIZED UNDERSTANDING AND NO FURTHER QUESTIONS.
[2024-12-28 16:01] VITALS: BP 109/72
--- NOTE | 2024-12-28 16:36 | NUR ---
SHIFT/DISCHARGE SUMMARY: PATIENT A/OX3, PLEASANT AND COOPERATIVE c CARE. PATIENT MEDICATED FOR LOWER BACK PAIN PER EMAR c GOOD EFFECT. PATIENT HAD LARGE, BROWN BM TODAY. PATIENT RECEIVED SCHEDULED MEDS PER EMAR. VITAL SIGNS REVIEWED. PATIENT TOLERATING PO INTAKE WITHOUT DIFFICULTIES. PATIENT DENIES CP/PRESSURE, SOB, N/V AND DIZZINESS. PIV DC'D. PATIENT HAS HAD NO NEW CONCERNED OR DENIES ANY COMPLAINTS THIS SHIFT. PATIENT DISCHARGE TO [facility] FOR STRENGTHENING. PATIENT DISCHARGE INSTRUCTION PACKET GIVEN TO LISETH MENARD. PATIENT TRANSPORTED VIA WC AND LEFT AT 1635. ALL PERSONAL BELONGINGS WERE SENT c PATIENT. TR COMPLETED.
== END 2024-12-28 17:18 | DRG 101 ==
LOC: ER 20:55 → MEDS 20:56 → ENPENDDIS 12-28 10:56 → MEDS 12-28 17:18
PROVIDERS: Emergency Medicine; Internal Medicine; Student in an Organized Health Care Education/Training Program; ADMIT Student in an Organized Health Care Education/Training Program
DX: G40.909 Epilepsy, unspecified, not intractable, without status epilepticus (principal); I48.20 Chronic atrial fibrillation, unspecified; I25.10 Atherosclerotic heart disease of native coronary artery without angina pectoris; F03.90 Unspecified dementia, unspecified severity, without behavioral disturbance, psychotic disturbance, mood disturbance, and anxiety; I25.2 Old myocardial infarction; I12.9 Hypertensive chronic kidney disease with stage 1 through stage 4 chronic kidney disease, or unspecified chronic kidney disease; N18.31 Chronic kidney disease, stage 3a; G62.9 Polyneuropathy, unspecified; J44.89 Other specified chronic obstructive pulmonary disease; K22.70 Barrett's esophagus without dysplasia; M15.0 Primary generalized (osteo)arthritis; Z86.73 Personal history of transient ischemic attack (TIA), and cerebral infarction without residual deficits; Z79.51 Long term (current) use of inhaled steroids; Z79.82 Long term (current) use of aspirin; Z79.899 Other long term (current) drug therapy; Z79.01 Long term (current) use of anticoagulants; Z86.718 Personal history of other venous thrombosis and embolism; Z95.5 Presence of coronary angioplasty implant and graft; Z95.4 Presence of other heart-valve replacement; Z98.1 Arthrodesis status; Z98.890 Other specified postprocedural states; Z90.79 Acquired absence of other genital organ(s); Z87.891 Personal history of nicotine dependence; Z86.19 Personal history of other infectious and parasitic diseases
CPT/HCPCS: 36415; 70450; 70551; 71045; 72070; 80053; 81001; 84484; 85025; 85610; 92610; 93005; 93010; 94640; 94664; 94760; 94762; 96365; 96372; 96374; 96375; 97110; 97112; 97116; 97162; 97530; 99285-25; A9270; G0378; J1650; J1953; J2405; J2470; J7030

== ENCOUNTER → 2025-04-13 | Outpatient (CLI) | payer MEDICARE, OTHER ==
[~2025-04-13] MED LIST changes: +ALLO100 PO; +C COMPLEX1000 M1 PO; +DONEPEZIL HCL10 M1 PO; +IPRAT-ALBUT 0.5-3 ML INH; +LEVETIRACETAM750 M1 PO; +MAGNESIUM GLU27.5 M1 PO; +OCUVITE BLUE L1 EACH PO; +SENN187 PO; +VITAMIN D5000 UNIT PO; +ZYRTEC10 M2 PO
[2025-04-13 14:19] LABS: BASOPHILS ABSOLUTE AUTO 0.03 K/mm3 (0.00-0.23); BASOPHILS PERCENT AUTO 0 % (0-2); EOSINOPHILS ABSOLUTE AUTO 0.85 K/mm3 (0.00-0.68); EOSINOPHILS PERCENT AUTO 11 % (0-6); Hematocrit 39.9 % (37.0-53.0); Hemoglobin 13.2 g/dL (13.5-17.5); IMMATURE GRAN ABSOLUTE AUTO 0.03 K/mm3 (0.00-0.10); IMMATURE GRAN PERCENT AUTO 0 % (0-1); LYMPHOCYTES ABSOLUTE AUTO 1.15 K/mm3 (0.84-5.20); LYMPHOCYTES PERCENT AUTO 15 % (21-46); MONOCYTES ABSOLUTE AUTO 0.73 K/mm3 (0.16-1.47); MONOCYTES PERCENT AUTO 9 % (4-13); Mean Corpuscular HGB Conc 33.1 g/dL (31.5-36.5); Mean Corpuscular Volume 94 fL (80-100); NEUTROPHILS ABSOLUTE AUTO 4.99 K/mm3 (1.96-9.15); NEUTROPHILS PERCENT AUTO 64 % (41-73); NRBC ABSOLUTE 0.00 K/mm3 (0.00-0.02); NRBC Auto 0.0 /100 WBC (0.0-0.2); Platelet Count 138 K/mm3 (150-400); RDW Coefficient Variation 14.2 % (11.7-14.2); RDW Standard Deviation 48.9 fL (35.1-46.3)
[2025-04-13 14:22] LABS: Alanine Aminotransfer (ALT/SGP 54.0 U/L (12-78); Albumin, Blood 3.2 g/dL (3.4-5.0); Albumin/Globulin Ratio 0.8 (0.8-1.8); Anion Gap 9.0 mmol/L (3-11); Aspartate Aminotrans (AST/SGOT 44.0 U/L (12-37); Bilirubin, Total 0.8 mg/dL (0.1-1.0); Blood Urea Nitrogen 22.0 mg/dL (8-24); CO2, Blood 26.0 mmol/L (21-32); Calcium, Blood 9.0 mg/dL (8.5-10.1); Chloride, Blood 102.0 mmol/L (98-108); Creatinine, Blood 1.34 mg/dL (0.60-1.20); Globulin, Blood 4.1 g/dL (2.2-4.0); Glucose, Blood 97.0 mg/dL (70-99); Potassium, Blood 4.6 mmol/L (3.5-5.5); Sodium, Blood 132.0 mmol/L (136-145); Total Protein, Blood 7.3 g/dL (6.4-8.2)
== END ==
LOC: LAB 12:50 → LAB SHORT 12:50
PROVIDERS: Nurse Practitioner Family
DX: R06.02 Shortness of breath (principal)
CPT/HCPCS: 80053; 85025